=== PATIENT | female | born 1975 | race Caucasian/White ===

== ENCOUNTER 2021-04-09 07:40 | Day surgery (SDC) | payer BC, SELFPAY ==
[~2021-04-09] VITALS: Ht 170.2 cm; Wt 72.6 kg
[~2021-04-09 07:40] MED LIST: CEFAZOLIN SOD 1 GM in D5W 50 ML IV ONE
[2021-04-09 08:26] LABS: HCG,QUAL RESULT NEGATIVE (NEGATIVE)
[2021-04-09] MEDS ORDERED: SEVOFLURANE 15 MIN GAS INH ONE (08:48)
[2021-04-09] MEDS ORDERED: NS 1000 ML IV.SOLN IV ONE (08:48)
[2021-04-09] MEDS ORDERED: PROPOFOL 200MG/ 20ML VIAL (DIPRIVAN) IV ONE (08:48)
[2021-04-09] MEDS ORDERED: KETOROLAC TROMETHAMINE 30 MG VIAL IVP ONE (08:48)
[2021-04-09] MEDS ORDERED: NS IRRIG SOLN 1000 ML IR ONE (08:48)
[2021-04-09] MEDS ORDERED: MIDAZOLAM HCL 5 MG/5 ML VIAL IVP ONE (08:48)
[2021-04-09] MEDS ORDERED: fentaNYL CITRATE/PF 100 MCG/2 ML AMP IVP ONE (08:48)
[2021-04-09] MEDS ORDERED: LR 1,000 ML IV.SOLN IV ONE (08:48)
[2021-04-09] MEDS ORDERED: GLYCOPYRROLATE 0.2 MG/ML VIAL IJ ONE (08:48)
[2021-04-09] MEDS ORDERED: ONDANSETRON HCL 4 MG/2 ML VIAL IVP ONE (08:48)
[2021-04-09] MEDS ORDERED: METOCLOPRAMIDE HCL 10 MG/2 ML VIAL IVP ONE (08:48)
[2021-04-09] MEDS ORDERED: OXYCODONE/ACETAMINOPHEN 5-325 TABLET PO PRN ×2 (09:30)
[2021-04-09] MEDS ORDERED: HYDROcodone/ACETAMIN 5-325 MG TAB (NORCO/ VICODIN) PO PRN (09:30)
[2021-04-09] MEDS ORDERED: ONDANSETRON HCL 4 MG/2 ML VIAL IVP PRN ×2 (09:30→09:45)
[2021-04-09] MEDS ORDERED: LR 1,000 ML IV SCH (09:45)
[2021-04-09] MEDS ORDERED: KETOROLAC TROMETHAMINE 30 MG VIAL IVP PRN (09:45)
[2021-04-09 10:57] VITALS: BP_SYST 104
== END 2021-04-09 11:50 | disposition home or self-care (01) ==
LOC: SDS 07:40 → SMU 07:40 → SDS 11:50
PROVIDERS: ATTEND Specialist
DX: N93.8 Other specified abnormal uterine and vaginal bleeding (principal); D50.0 Iron deficiency anemia secondary to blood loss (chronic); N84.0 Polyp of corpus uteri; F41.9 Anxiety disorder, unspecified; Z79.899 Other long term (current) drug therapy; Z20.828 Contact with and (suspected) exposure to other viral communicable diseases
CPT/HCPCS: 58558; 84703; 88305; J0690; J1885; J2250; J2405; J2704; J2765; J3010; J3490; J7030; J7060; J7120; U0003